=== PATIENT | female | born 1980 | race Caucasian/White ===

== ENCOUNTER 2019-05-17 14:18 | Emergency (ER) | payer OTHER, SELFPAY ==
[2019-05-17 14:42] VITALS: BP 123/78; PULSE 96; RESP 18; TEMP 37.1; O2SAT 99; BMI 22.4
[2019-05-17 15:02] LABS: Add Manual Diff / Slide Review NO; Basophils Absolute Auto 100 /uL (0-100); Basophils Percent Auto 0.9 % (0-2); Eosinophils Absolute Auto 100 /uL (0-450); Eosinophils Percent Auto 1.4 % (2-4); Hematocrit 43.8 % (36-46); Hemoglobin 14.7 g/dL (12.0-16.0); Lymphocytes Absolute Auto 2500 /uL (1100-4500); Lymphocytes Percent Auto 23.9 % (25-40); Mean Corpuscular HGB Conc 33.5 % (30-36); Mean Corpuscular Hemoglobin 33.8 PG (26-34); Mean Corpuscular Volume 100.7 fL (80-100); Monocytes Absolute Auto 700 /uL (0-900); Monocytes Percent Auto 6.3 % (3-14); Neutrophils Absolute Auto 7000 /uL (1500-7000); Neutrophils Percent Auto 67.5 % (50-75); Platelet Count 271 X10^3/uL (150-400); Red Blood Cell Count 4.35 X10^6/uL (4.0-5.2); Red Cell Distribution Width 13.4 % (11.6-14.8); White Blood Cell Count 10.3 X10^3/uL (4.5-11.0)
[2019-05-17 15:14] LABS: PTT Partial Thromboplastin Tim 33 SECONDS (26.4-36.2)
[2019-05-17 15:15] LABS: Alanine Aminotransferase 11 IU/L (9-52); Albumin 4.4 g/dL (3.5-5.0); Albumin Globulin Ratio 1.5 (1.0-2.8); Alkaline Phosphatase 63 U/L (38-126); Aspartate Aminotransferase 15 IU/L (14-36); BUN Creatinine Ratio 8.8 (6-22); Bilirubin Total 0.5 mg/dL (0.2-1.3); Blood Urea Nitrogen 7 mg/dL (7-17); Calcium 9.6 mg/dL (8.4-10.2); Carbon Dioxide 25 mmol/L (22-32); Chloride 105 mmol/L (98-107); Estimated Glomerular Filt Rate > 60.0 mL/min (>60); Glucose 107 mg/dL (70-100); HEMOLYSIS < 15 (0-50); Lipase 55 U/L (23-300); Potassium 4.5 mmol/L (3.4-5.1); Sodium 137 mmol/L (137-145); Total Protein 7.4 g/dL (6.3-8.2)
--- NOTE | 2019-05-17 15:23 | DI.US.S_ITS ---
PROCEDURE: US ABDOMEN LIMITED INDICATIONS: RUQ PAIN TECHNIQUE: Real-time scanning was performed of the abdominal and retroperitoneal organs, with image documentation. COMPARISON: None. FINDINGS: Liver: Liver is mildly enlarged and measures 19.4 cm in length. Slightly increased liver parenchymal echotexture is seen. No discrete hepatic lesion. Gallbladder: There is no gallstone. No gallbladder wall thickening or pericholecystic fluid. No sonographic Coyle's sign. Biliary ducts: Intrahepatic bile ducts are non-dilated. Extrahepatic bile duct caliber measures 3.7 mm. Normal is 6-7 mm or less in diameter, or 10 mm or less post-cholecystectomy. Pancreas: Visualized portions of the pancreas are sonographically normal. Miscellaneous: No free abdominal fluid. IMPRESSION: Mild hepatomegaly and hepatic steatosis. No discrete hepatic lesion. Normal appearing gallbladder. No biliary ductal dilatation. Dictated by: Jean-Claude Padilla M.D. on 05/17/2019 at 16:31 Approved by: Jean-Claude Padilla M.D. on 05/17/2019 at 16:32
--- NOTE | 2019-05-17 15:36 | ED.ABDPAIN ---
HPI - Abdominal Pain <KATYA Pack-BC - Last Filed: 05/17/19 19:52> General Chief Complaint: Abdominal Pain Stated Complaint: stomach issues Time Seen by Provider: 05/17/19 15:21 Source: patient and family Mode of arrival: ambulatory Limitations: no limitations History of Present Illness HPI narrative: 39-year-old female current everyday smoker who denies any history of abdominal surgery who presents with a chief complaint of right upper quadrant abdominal pain. This has been going on for several days. She endorses some nausea, no vomiting. She states that the right upper quadrant pain was worse with eating. She denies any fevers over the past few days. She denies any shortness of breath or congestion. She denies any chest pain and states that her pain sticks right in her right upper quadrant. She states that she has tried Tums and ibuprofen, with not much help. She states her last bowel movement was this morning and normal. She states she has been very gassy and has belching and lots of flatulence. Related Data Previous Rx's Medication Instructions Recorded hydrocodone-acetaminophen [Carnegie] 1 tab PO Q4-6H PRN #10 tab 05/17/19 ondansetron 4 mg PO Q8H PRN #20 tab 05/17/19 Allergies Allergy/AdvReac Type Severity Reaction Status Date / Time diphenhydramine Allergy Severe Hives Verified 05/17/19 17:08 [From Jean-Pierre] Review of Systems <KATYA Pack- - Last Filed: 05/17/19 19:52> Review of Systems GENERAL: Denies chills, fatigue, malaise, fever, sweats. HEENT: Denies sinus pain, ear pain, sore throat, difficulty swallowing, dizziness. RESPIRATORY: Denies dyspnea, cough, wheezing, hemoptysis, sputum. CARDIOVASCULAR: Denies chest pain, palpitations, orthopnea, edema, GASTROINTESTINAL: See HPI : Denies dysuria, frequency, incontinence, hematuria, urinary retention. MUSCULOSKELETAL: denies weakness, joint pain, or bony pain SKIN: Denies rash, skin lesions, or other NEUROLOGIC: Denies weakness, headache, numbness, change in speech, confusion, seizures, incoordination. PSYCHIATRIC: No concerning psychosocial issues. 12 point review of systems is negative except for those stated above PFSH <HOUSTON Pack - Last Filed: 05/17/19 19:52> Medical History (Updated 05/17/19 @ 19:34 by HOUSTON Pack) History of ovarian cyst (Acute) Social History Smoking Status: Current every day smoker Social History Smoking Status: Current every day smoker Exam <HOUSTON Pack - Last Filed: 05/17/19 19:52> Narrative Exam Narrative: GENERAL: This is a well-nourished, well-developed patient, in no acute distress HEAD: Atraumatic. Normocephalic. No temporal or scalp tenderness. EYES: Pupils equal round and reactive. Extraocular motions intact. No scleral icterus. No injection or drainage. ENT: Nose without bleeding, purulent drainage or septal hematoma. Throat without erythema, tonsillar hypertrophy or exudate. Uvula midline. Airway patent. NECK: Trachea midline. No JVD or lymphadenopathy. Supple, nontender, no meningeal signs. CARDIOVASCULAR: Regular rate and rhythm RESPIRATORY: Clear to auscultation. Breath sounds equal bilaterally. No wheezes, rales, or rhonchi. No cough. No increased respiratory effort. No accessory muscle use. GASTROINTESTINAL: Abdomen soft,, nondistended. No hepato-splenomegaly, or palpable masses. Pain to palpation right upper quadrant. Positive Coyle sign. Active bowel sounds all 4 quadrants EXTREMITIES: No clubbing, cyanosis, or edema. No joint tenderness, effusion, or edema noted. BACK: Nontender without deformity or crepitance. No flank tenderness. NEURO: AOx3. SKIN: No rash or erythema. Initial Vital Signs Initial Vital Signs: Vital Signs Temperature 98.7 F 05/17/19 14:42 Pulse Rate 96 H 05/17/19 14:42 Respiratory Rate 18 05/17/19 14:42 Blood Pressure 123/78 05/17/19 14:42 Pulse Oximetry 99 05/17/19 14:42 <Sia Keane DO - Last Filed: 05/18/19 18:05> Initial Vital Signs Initial Vital Signs: Vital Signs Temperature 98.7 F 05/17/19 14:42 Pulse Rate 96 H 05/17/19 14:42 Respiratory Rate 18 05/17/19 14:42 Blood Pressure 123/78 05/17/19 14:42 Pulse Oximetry 99 05/17/19 14:42 Scores <HORTENSIA Pack - Last Filed: 05/17/19 19:52> HEART Score Heart Score history: Slightly Suspicious Heart Score EKG: Normal Heart Score Age: < 45 years old Heart Score risk factors: 1-2 risk factors Heart Score troponin: < or = to normal limit Heart Score Total: 1 Course <HORTENSIA Pack - Last Filed: 05/17/19 19:52> Orders Ordered: Discontinued Medications Al Hydrox/Mg Hydrox/Simethicone 20 ml/ Lidocaine HCl 15 ml 0 ml PO NOW ONE Stop: 05/17/19 17:07 Last Admin: 05/17/19 17:15 Dose: 35 ml Ketorolac Tromethamine (Toradol) 30 mg IV NOW ONE Stop: 05/17/19 17:07 Last Admin: 05/17/19 17:15 Dose: 30 mg Morphine Sulfate (Morphine) 4 mg IV NOW ONE Stop: 05/17/19 15:35 Last Admin: 05/17/19 16:01 Dose: 4 mg Ondansetron HCl (Zofran) 4 mg IV NOW ONE Stop: 05/17/19 15:35 Last Admin: 05/17/19 16:01 Dose: 4 mg Pantoprazole Sodium (Protonix) 40 mg IV NOW ONE Stop: 05/17/19 17:07 Last Admin: 05/17/19 17:15 Dose: 40 mg Vital Signs - 8 hr 05/17/19 14:42 05/17/19 16:21 05/17/19 18:44 Temperature 98.7 F Pulse Rate 96 H 71 67 Respiratory Rate 18 Blood Pressure 123/78 Blood Pressure [Left Arm] 113/80 115/81 Pulse Oximetry 99 98 97 <Sia Keane DO - Last Filed: 05/18/19 18:05> Orders Ordered: Discontinued Medications Al Hydrox/Mg Hydrox/Simethicone 20 ml/ Lidocaine HCl 15 ml 0 ml PO NOW ONE Stop: 05/17/19 17:07 Last Admin: 05/17/19 17:15 Dose: 35 ml Ketorolac Tromethamine (Toradol) 30 mg IV NOW ONE Stop: 05/17/19 17:07 Last Admin: 05/17/19 17:15 Dose: 30 mg Morphine Sulfate (Morphine) 4 mg IV NOW ONE Stop: 05/17/19 15:35 Last Admin: 05/17/19 16:01 Dose: 4 mg Ondansetron HCl (Zofran) 4 mg IV NOW ONE Stop: 05/17/19 15:35 Last Admin: 05/17/19 16:01 Dose: 4 mg Pantoprazole Sodium (Protonix) 40 mg IV NOW ONE Stop: 05/17/19 17:07 Last Admin: 05/17/19 17:15 Dose: 40 mg Vital Signs - 8 hr 05/17/19 14:42 05/17/19 16:21 05/17/19 18:44 Temperature 98.7 F Pulse Rate 96 H 71 67 Respiratory Rate 18 Blood Pressure 123/78 Blood Pressure [Left Arm] 113/80 115/81 Pulse Oximetry 99 98 97 MDM - Abdominal Pain <KATYA Pack- - Last Filed: 05/17/19 19:52> Lab Data Result diagrams: 05/17/19 14:53 05/17/19 14:53 Lab Results 05/17/19 05/17/19 05/17/19 Range/Units 14:53 14:53 14:53 WBC 10.3 (4.5-11.0) X10^3/uL RBC 4.35 (4.0-5.2) X10^6/uL Hgb 14.7 (12.0-16.0) g/dL Hct 43.8 (36-46) % MCV 100.7 H (80-100) fL MCH 33.8 (26-34) PG MCHC 33.5 (30-36) % RDW 13.4 (11.6-14.8) % Plt Count 271 (150-400) X10^3/uL Neut % (Auto) 67.5 (50-75) % Lymph % (Auto) 23.9 L (25-40) % [place] % (Auto) 6.3 (3-14) % Eos % (Auto) 1.4 L (2-4) % Baso % (Auto) 0.9 (0-2) % Neut # (Auto) 7000 (1533-6039) /uL Lymph # (Auto) 2500 (4859-7485) /uL [place] # (Auto) 700 (0-900) /uL Eos # (Auto) 100 (0-450) /uL Baso # (Auto) 100 (0-100) /uL PT 11.0 (10.1-12.7) SECONDS INR 1.0 (0.9-1.3) APTT 33 (26.4-36.2) SECONDS Sodium 137 (137-145) mmol/L Potassium 4.5 (3.4-5.1) mmol/L Chloride 105 (98-107) mmol/L Carbon Dioxide 25 (22-32) mmol/L BUN 7 (7-17) mg/dL Creatinine 0.80 (0.52-1.04) mg/dL Estimated GFR > 60.0 (>60) mL/min BUN/Creatinine Ratio 8.8 (6-22) Glucose 107 H (70-100) mg/dL Calcium 9.6 (8.4-10.2) mg/dL Total Bilirubin 0.5 (0.2-1.3) mg/dL AST 15 (14-36) IU/L ALT 11 (9-52) IU/L Alkaline Phosphatase 63 (38-126) U/L Total Creatine Kinase (30-135) U/L CK-MB (CK-2) CK-MB (CK-2) Rel Index Troponin I (0.01-0.034) ng/mL Total Protein 7.4 (6.3-8.2) g/dL Albumin 4.4 (3.5-5.0) g/dL Globulin 3.0 (1.7-4.1) g/dL Albumin/Globulin Ratio 1.5 (1.0-2.8) Lipase 55 (23-300) U/L 05/17/ Range/Units 14:53 WBC (4.5-11.0) X10^3/uL RBC (4.0-5.2) X10^6/uL Hgb (12.0-16.0) g/dL Hct (36-46) % MCV (80-100) fL MCH (26-34) PG MCHC (30-36) % RDW (11.6-14.8) % Plt Count (150-400) X10^3/uL Neut % (Auto) (50-75) % Lymph % (Auto) (25-40) % [place] % (Auto) (3-14) % Eos % (Auto) (2-4) % Baso % (Auto) (0-2) % Neut # (Auto) (3575-8757) /uL Lymph # (Auto) (4890-8965) /uL [place] # (Auto) (0-900) /uL Eos # (Auto) (0-450) /uL Baso # (Auto) (0-100) /uL PT (10.1-12.7) SECONDS INR (0.9-1.3) APTT (26.4-36.2) SECONDS Sodium (137-145) mmol/L Potassium (3.4-5.1) mmol/L Chloride (98-107) mmol/L Carbon Dioxide (22-32) mmol/L BUN (7-17) mg/dL Creatinine (0.52-1.04) mg/dL Estimated GFR (>60) mL/min BUN/Creatinine Ratio (6-22) Glucose (70-100) mg/dL Calcium (8.4-10.2) mg/dL Total Bilirubin (0.2-1.3) mg/dL AST (14-36) IU/L ALT (9-52) IU/L Alkaline Phosphatase (38-126) U/L Total Creatine Kinase 34 (30-135) U/L CK-MB (CK-2) TNP CK-MB (CK-2) Rel Index TNP Troponin I < 0.012 (0.01-0.034) ng/mL Total Protein (6.3-8.2) g/dL Albumin (3.5-5.0) g/dL Globulin (1.7-4.1) g/dL Albumin/Globulin Ratio (1.0-2.8) Lipase (23-300) U/L Point of care testing: Point of Care Testing Test Results Negative Urine Dip Bedside Urine Glucose Negative Bedside Urine Bilirubin - Negative Bedside Urine Ketone - Negative Urine Specific [place] 1.015 Bedside Urine Occult Blood - Negative Bedside Urine pH 7.0 Bedside Urine Protein - Negative Bedside Urine Urobilinogen - Negative Bedside Urine Nitrite - Negative Bedside Urine Leukocytes - Negative Esterase Imaging Data CT scan - pelvis: Radiologist's impression: [address] [address] [address] Scan Report Signed Patient: Yecenia Carlin MaeMR#: [id number] : 1980Acct:[id number] Age/Sex: 39 / FDate of Service: 05/17/19 Loc: ED Accession Number: [id number] Procedure: CT abdomen pelvis w con Ordering Provider: Sia Bowles [facility]- PROCEDURE: CT ABDOMEN PELVIS W CON INDICATIONS: abd pain TECHNIQUE: After the administration of intravenous contrast, 5 mm thick sections acquired from the diaphragm to the symphysis. 5 mm coronal and sagittal reformats were acquired. For radiation dose reduction, the following was used: automated exposure control, adjustment of mA and/or kV according to patient size. COMPARISON: None. FINDINGS: Image quality: Excellent. ABDOMEN: Lung bases: Lung bases are clear. Heart size is normal. Solid organs: Liver is normal in size and enhancement. Gallbladder is unremarkable. Biliary system is non dilated. Pancreas enhances normally. Spleen is normal in size and enhancement. No adrenal nodules. Kidneys demonstrate normal size and enhancement, without hydronephrosis. There is a punctate nonobstructing nephrolith within the left kidney. Peritoneum and bowel: Bowel loops demonstrate normal wall thickness and caliber. No free fluid or air. A normal appendix is seen on axial image 71 of series 2. There is colonic diverticulosis without evidence of acute diverticulitis. Nodes and vessels: No retroperitoneal or mesenteric adenopathy by size criteria. Aorta and inferior vena cava are normal in size. PELVIS: Genitourinary: Bladder wall thickness is normal. There is a 2.6 cm right adnexal cyst with peripheral contrast enhancement. Uterus is present. There is a small to moderate volume of free fluid within the pelvis. Bones: No suspicious bony lesions. No vertebral body compression fractures. IMPRESSION: 1. 2.6 cm right adnexal cyst with peripheral contrast enhancement, which may represent an involuting corpus luteal cyst. There is a small to moderate volume of free fluid within the pelvis. Recommend correlation with patient's status to exclude an underlying ectopic . 2. Punctate nonobstructing nephrolith within the left kidney. 3. Colonic diverticulosis without evidence of acute diverticulitis. Dictated by: Surinder Hancock M.D. on 05/17/2019 at 18:53 Approved by: Surinder Hancock M.D. on 05/17/2019 at 18:58 US - abdomen: Radiologist's impression: [address] [address] Ultrasound Report Signed Patient: Yecenia Carlin#: [id number] : 1980Acct:[id number] Age/Sex: 39 / FDate of Service: 05/17/19 Loc: ED Accession Number: [id number] Procedure: US abdomen limited Ordering Provider: Sia Bowles PROCEDURE: US ABDOMEN LIMITED INDICATIONS: RUQ PAIN TECHNIQUE: Real-time scanning was performed of the abdominal and retroperitoneal organs, with image documentation. COMPARISON: None. FINDINGS: Liver: Liver is mildly enlarged and measures 19.4 cm in length. Slightly increased liver parenchymal echotexture is seen. No discrete hepatic lesion. Gallbladder: There is no gallstone. No gallbladder wall thickening or pericholecystic fluid. No sonographic Coyle's sign. Biliary ducts: Intrahepatic bile ducts are non-dilated. Extrahepatic bile duct caliber measures 3.7 mm. Normal is 6-7 mm or less in diameter, or 10 mm or less post-cholecystectomy. Pancreas: Visualized portions of the pancreas are sonographically normal. Miscellaneous: No free abdominal fluid. IMPRESSION: Mild hepatomegaly and hepatic steatosis. No discrete hepatic lesion. Normal appearing gallbladder. No biliary ductal dilatation. Dictated by: Jean-Claude Padilla M.D. on 05/17/2019 at 16:31 Approved by: Jean-Claude Padilla M.D. on 05/17/2019 at 16:32 [facility] Narrative Medical decision making narrative: The patient is a 39-year-old female who presents with right upper quadrant pain. She has an ultrasound that is negative for gallbladder. Given the unknown etiology for her pain, did abdomen pelvis CT, which came back with a cyst of her ovary. I did discuss at length the possibility of PID, ovarian torsion etc. I discussed that these have very serious implications including fertility. The patient declined a pelvic exam in the emergency department several times and states she would rather follow up with her PCP. I discussed at length to come back to the ER for any acute concerns such as inability keep down fluids. I did give her small prescription of Carnegie as well as Zofran. Discussed at length PCP follow-up. Discussed come back to ER for any acute concerns. Patient has no questions or concerns upon discharge. <Sialuis Keane, DO - Last Filed: 05/18/19 18:05> Lab Data Lab Results 05/17/19 05/17/19 05/17/19 Range/Units 14:53 14:53 14:53 WBC 10.3 (4.5-11.0) X10^3/uL RBC 4.35 (4.0-5.2) X10^6/uL Hgb 14.7 (12.0-16.0) g/dL Hct 43.8 (36-46) % MCV 100.7 H (80-100) fL MCH 33.8 (26-34) PG MCHC 33.5 (30-36) % RDW 13.4 (11.6-14.8) % Plt Count 271 (150-400) X10^3/uL Neut % (Auto) 67.5 (50-75) % Lymph % (Auto) 23.9 L (25-40) % [place] % (Auto) 6.3 (3-14) % Eos % (Auto) 1.4 L (2-4) % Baso % (Auto) 0.9 (0-2) % Neut # (Auto) 7000 (2705-6410) /uL Lymph # (Auto) 2500 (1587-9249) /uL [place] # (Auto) 700 (0-900) /uL Eos # (Auto) 100 (0-450) /uL Baso # (Auto) 100 (0-100) /uL PT 11.0 (10.1-12.7) SECONDS INR 1.0 (0.9-1.3) APTT 33 (26.4-36.2) SECONDS Sodium 137 (137-145) mmol/L Potassium 4.5 (3.4-5.1) mmol/L Chloride 105 (98-107) mmol/L Carbon Dioxide 25 (22-32) mmol/L BUN 7 (7-17) mg/dL Creatinine 0.80 (0.52-1.04) mg/dL Estimated GFR > 60.0 (>60) mL/min BUN/Creatinine Ratio 8.8 (6-22) Glucose 107 H (70-100) mg/dL Calcium 9.6 (8.4-10.2) mg/dL Total Bilirubin 0.5 (0.2-1.3) mg/dL AST 15 (14-36) IU/L ALT 11 (9-52) IU/L Alkaline Phosphatase 63 (38-126) U/L Total Creatine Kinase (30-135) U/L CK-MB (CK-2) CK-MB (CK-2) Rel Index Troponin I (0.01-0.034) ng/mL Total Protein 7.4 (6.3-8.2) g/dL Albumin 4.4 (3.5-5.0) g/dL Globulin 3.0 (1.7-4.1) g/dL Albumin/Globulin Ratio 1.5 (1.0-2.8) Lipase 55 (23-300) U/L 05/17/19 Range/Units 14:53 WBC (4.5-11.0) X10^3/uL RBC (4.0-5.2) X10^6/uL Hgb (12.0-16.0) g/dL Hct (36-46) % MCV (80-100) fL MCH (26-34) PG MCHC (30-36) % RDW (11.6-14.8) % Plt Count (150-400) X10^3/uL Neut % (Auto) (50-75) % Lymph % (Auto) (25-40) % [place] % (Auto) (3-14) % Eos % (Auto) (2-4) % Baso % (Auto) (0-2) % Neut # (Auto) (0135-2483) /uL Lymph # (Auto) (1324-6381) /uL [place] # (Auto) (0-900) /uL Eos # (Auto) (0-450) /uL Baso # (Auto) (0-100) /uL PT (10.1-12.7) SECONDS INR (0.9-1.3) APTT (26.4-36.2) SECONDS Sodium (137-145) mmol/L Potassium (3.4-5.1) mmol/L Chloride (98-107) mmol/L Carbon Dioxide (22-32) mmol/L BUN (7-17) mg/dL Creatinine (0.52-1.04) mg/dL Estimated GFR (>60) mL/min BUN/Creatinine Ratio (6-22) Glucose (70-100) mg/dL Calcium (8.4-10.2) mg/dL Total Bilirubin (0.2-1.3) mg/dL AST (14-36) IU/L ALT (9-52) IU/L Alkaline Phosphatase (38-126) U/L Total Creatine Kinase 34 (30-135) U/L CK-MB (CK-2) TNP CK-MB (CK-2) Rel Index TNP Troponin I < 0.012 (0.01-0.034) ng/mL Total Protein (6.3-8.2) g/dL Albumin (3.5-5.0) g/dL Globulin (1.7-4.1) g/dL Albumin/Globulin Ratio (1.0-2.8) Lipase (23-300) U/L Point of care testing: Point of Care Testing Test Results Negative Urine Dip Bedside Urine Glucose Negative Bedside Urine Bilirubin - Negative Bedside Urine Ketone - Negative Urine Specific [place] 1.015 Bedside Urine Occult Blood - Negative Bedside Urine pH 7.0 Bedside Urine Protein - Negative Bedside Urine Urobilinogen - Negative Bedside Urine Nitrite - Negative Bedside Urine Leukocytes - Negative Esterase Discharge Plan Departure Patient Disposition: Home Clinical Impression: Right upper quadrant pain, Cyst of right ovary Discharge Date/Time: 05/17/19 19:55 Interventions: ED Discharge Assessment Last Done: 05/17/19 19:54 Instructions: DI for Ovarian Cyst, DI for Abdominal Pain-Adult Activity Restrictions/Additional Instructions: Your gallbladder ultrasound came back normal. Your lab work is grossly within normal limits. Your CT shows an ovarian cyst. Please follow up with primary care provider. You did not want a pelvic exam today in the ER. Be aware this prevents is for ruling out serious etiologies as we discussed. I have given you prescriptions of pain and nausea medication. Be aware that the pain medication can be constipating and sedating. Prescriptions: New hydrocodone-acetaminophen [Carnegie] 5-325 mg tablet 1 tab PO Q4-6H PRN (Reason: pain) Qty: 10 RF: 0 ondansetron 4 mg tablet,disintegrating 4 mg PO Q8H PRN (Reason: nausea and vomiting) Qty: 20 RF: 0 <Sia Keane DO - Last Filed: 05/18/19 18:05> Cosign ED Attending Cosignature Attestation: I was immediately available in the department for consultation. This documentation has been reviewed and I agree with assessment and plan. Supervised by Sia Keane,
[2019-05-17 15:49] LABS: Creatine Kinase 34 U/L (30-135)
[2019-05-17] MEDS: MORPHINE 4 MG/ML INJ IV (16:01)
[2019-05-17] MEDS: ONDANSETRON 4 MG/2 ML INJ IV (16:01)
[2019-05-17 16:02] LABS: Troponin I < 0.012 ng/mL (0.01-0.034)
[2019-05-17 16:21] VITALS: BP 113/80; PULSE 71; O2SAT 98
[2019-05-17] MEDS: KETOROLAC 60 MG/2 ML VIAL 30 MG IV (17:15)
[2019-05-17] MEDS: PANTOPRAZOLE 40 MG VIAL IV (17:15)
[2019-05-17] MEDS: MAG HYDROX/ALUMINUM/SIMETH SUS 20 ML, LIDOCAINE VISCOUS 2% 15 ML PO (17:15)
--- NOTE | 2019-05-17 17:36 | DI.CT.S_ITS ---
PROCEDURE: CT ABDOMEN PELVIS W CON INDICATIONS: abd pain TECHNIQUE: After the administration of intravenous contrast, 5 mm thick sections acquired from the diaphragm to the symphysis. 5 mm coronal and sagittal reformats were acquired. For radiation dose reduction, the following was used: automated exposure control, adjustment of mA and/or kV according to patient size. COMPARISON: None. FINDINGS: Image quality: Excellent. ABDOMEN: Lung bases: Lung bases are clear. Heart size is normal. Solid organs: Liver is normal in size and enhancement. Gallbladder is unremarkable. Biliary system is non dilated. Pancreas enhances normally. Spleen is normal in size and enhancement. No adrenal nodules. Kidneys demonstrate normal size and enhancement, without hydronephrosis. There is a punctate nonobstructing nephrolith within the left kidney. Peritoneum and bowel: Bowel loops demonstrate normal wall thickness and caliber. No free fluid or air. A normal appendix is seen on axial image 71 of series 2. There is colonic diverticulosis without evidence of acute diverticulitis. Nodes and vessels: No retroperitoneal or mesenteric adenopathy by size criteria. Aorta and inferior vena cava are normal in size. PELVIS: Genitourinary: Bladder wall thickness is normal. There is a 2.6 cm right adnexal cyst with peripheral contrast enhancement. Uterus is present. There is a small to moderate volume of free fluid within the pelvis. Bones: No suspicious bony lesions. No vertebral body compression fractures. IMPRESSION: 1. 2.6 cm right adnexal cyst with peripheral contrast enhancement, which may represent an involuting corpus luteal cyst. There is a small to moderate volume of free fluid within the pelvis. Recommend correlation with patient's status to exclude an underlying ectopic . 2. Punctate nonobstructing nephrolith within the left kidney. 3. Colonic diverticulosis without evidence of acute diverticulitis. Dictated by: Surinder Hancock M.D. on 05/17/2019 at 18:53 Approved by: Surinder Hancock M.D. on 05/17/2019 at 18:58
[2019-05-17 18:44] VITALS: BP 115/81; PULSE 67; O2SAT 97
== END 2019-05-17 19:55 | disposition home or self-care (01) ==
PROVIDERS: Emergency Medicine; Emergency Provider Nurse Practitioner Family
DX: R10.11 Right upper quadrant pain (principal); N83.201 Unspecified ovarian cyst, right side
CPT/HCPCS: 36415; 74177; 76705; 80053; 81003; 81025; 82550; 83690; 84484; 85025; 85610; 85730; 93005; 96374; 96375; 99283; 99284; 99285; C9113; J1885; J2270; J2405; Q9967